=== PATIENT | female | born 1950 | race Caucasian/White ===

== ENCOUNTER 2018-11-28 06:59 | Day surgery (SDC) | payer MEDICARE, OTHER ==
[~2018-11-28] VITALS: Ht 154.9 cm; Wt 65.6 kg
[2018-11-28] MEDS ORDERED: PROPOFOL 200 MG INJ ONE (07:00)
[2018-11-28 09:05] VITALS: Ht 154.9 cm; Wt 65.6 kg
[2018-11-28] MEDS ORDERED: ATORVASTATIN (09:09)
[2018-11-28] MEDS ORDERED: LISINOPRIL (09:09)
[2018-11-28] MEDS ORDERED: METOPROLOL (09:09)
[2018-11-28] MEDS ORDERED: INSULIN (09:09)
[2018-11-28 09:29] VITALS: BP 153/66; PULSE 78; RESP 9
--- NOTE | 2018-11-28 09:39 | PREAC ---
Date/Time of Note Date/Time of Note DATE: 11/28/18 TIME: 09:38 Anesthesia Eval and Record Evaluation Time Pre-Procedure Interview DATE: 11/28/18 TIME: 09:38 Age 68 Sex female NPO: 8 hrs Preoperative diagnosis abd pain Planned procedure egd, colonoscopy Past Medical History Past Medical History: Includes Cardio: HTN, Dyslipidemia Endo: Diabetes Surgery & Anesthesia Issues No known issue Meds Anticoagulation: No Beta Dave within 24 hr: No Reason Beta Dave not given: Pt. not on B-Dave Reported Medications [Insulin] No Conflict Check 11/28/18 [Atorvastatin] No Conflict Check 11/28/18 [Metoprolol] No Conflict Check 11/28/18 [Lisinopril] No Conflict Check 11/28/18 Meds reviewed: Yes Allergies Coded Allergies: No Known Allergy (Unverified , 01/19/14) Allergies Reviewed: Yes Labs/Studies Labs Reviewed: Reviewed by anesthesiologist test: Negative Pre-procedure Exam Last vitals Vital Signs Date Temp Pulse Resp B/P (MAP) Pulse Ox O2 O2 Flow FiO2 Time Delivery Rate 11/28/18 98.0 78 9 153/66 98 Room Air 09:29 (95) Airway: Adequate mouth opening, Adequate thyromental dist Mallampati: Mallampati II Teeth: Normal Lung: Normal Heart: Normal ASA Physical Status ASA physical status: 3 Emergency: None Planned Anesthetic General/MAC: Mask Pre-operative Attestations Prior to commencing anesthesia and surgery, the patient was re-evaluated, there was verification of: *The patient's identity *The results of appropriate recent lab work and preoperative vital signs *The above evaluation not changing prior to induction *Anesthetic plan, risk benefits, alternative and complications discussed with patient/family; questions answered; patient/family understands, accepts and wishes to proceed. VINOD SAUCEDO Nov 28, 2018 09:39
[2018-11-28] MEDS ORDERED: PROPOFOL 40 ML ONE (09:52)
[2018-11-28] MEDS ORDERED: LIDOCAINE 100 MG SYRINGE ONE (09:52)
[2018-11-28 11:07] VITALS: BP 123/60; PULSE 70; RESP 18
--- NOTE | 2018-11-28 14:30 | PAC ---
Date/Time of Note Date/Time of Note DATE: 11/28/18 TIME: 14:29 Post-Anesthesia Notes Post-Anesthesia Note Last documented vital signs Vital Signs Date Temp Pulse Resp B/P (MAP) Pulse Ox O2 O2 Flow FiO2 Time Delivery Rate 11/28/18 97.7 70 18 123/60 98 Room Air 11:07 (81) Activity: WNL Respiratory function: WNL Cardiovascular function: WNL Mental status: Baseline Pain reasonably controlled: Yes Hydration appropriate: Yes Nausea/Vomiting absent: Yes VINOD SAUCEDO Nov 28, 2018 14:30
== END 2018-11-28 11:23 | disposition home or self-care (01) ==
LOC: GIL 06:59
PROVIDERS: ATTEND Internal Medicine Gastroenterology
DX: Z12.11 Encounter for screening for malignant neoplasm of colon (principal); K29.30 Chronic superficial gastritis without bleeding; K64.8 Other hemorrhoids; D12.2 Benign neoplasm of ascending colon; K21.0 Gastro-esophageal reflux disease with esophagitis; I10 Essential (primary) hypertension; E11.9 Type 2 diabetes mellitus without complications; E78.5 Hyperlipidemia, unspecified
CPT/HCPCS: 43239; 45380; 82962; 88305; 88312; J2001